=== PATIENT | male | born 1960 | race Caucasian/White ===

== ENCOUNTER 2017-01-17 01:44 | Emergency (ER) | payer MEDICARE, MEDICAID ==
[~2017-01-17] VITALS: Ht 175.3 cm; Wt 70.9 kg
[~2017-01-17 01:44] MED LIST: ALBU8.5H4 INHALATION; CYCL10TA9 PO; GABA600T2 PO; IMI100 PO; MECL-114 PO; ZOF8 PO; [UNRECOGNIZED DRUG - CODE] PO
[2017-01-17 01:49] VITALS: BP 149/84; PULSE 125; RESP 20; O2SAT 100
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
[2017-01-17] MEDS ORDERED: Albuterol-Ipratropium 3 mL Inhalation Solution NEB ONE (01:50)
[2017-01-17] MEDS ORDERED: Albuterol 2.5 mg/3 mL Inhalation Solution NEB ONE (01:50)
[2017-01-17] MEDS ORDERED: Dexamethasone 10 mg/mL Inj IVPUSH ONE (01:50)
[2017-01-17] MEDS ORDERED: 0.9% Sodium Chloride 1,000 ML IV ONE (01:50)
--- NOTE | 2017-01-17 02:09 | ABG ---
DateTimeAnalyzed 02:07:00 -_ pH ____7.343 - 7.350 7.450 pCO2 ___49.0__ -mmHg 35.0 45.0 pO2 ___78.9__ -mmHg 69.0 116 HCO3- ___25.9__ -mmol/L 22.0 26.0 ABE ____0.1__ -mmol/L -2.0 2.0 tHb ___13.2__ -g/dL O2Hb ___94.6__ -% COHb ____0.7__ -% MetHb ____0.8__ -% sO2 ___96.0__ -% 25.0 FIO2 ___25.0__ -% Drawn By MK - Date/Time Notified____ 02:09:00 -_ Liter_Flow ____1.0__ -L/min Oxygen Device 1 __CANNULA - B 753 -mmHg tO2 ___17.6__ -Vol% Roni test _Positive -
[2017-01-17 02:15] VITALS: PULSE 119; RESP 14; O2SAT 95
[2017-01-17 02:26] LABS: BASOPHILS % (AUTO) 0.3 % (0-3); EOSINOPHILS % (AUTO) 4.9 % (0-5); MONOCYTES % (AUTO) 4.8 % (4-12); Mean Corpuscular Volume 86.3 fL (81-100); NEUTROPHILS % (AUTO) 66.2 % (40-74); Platelet Count 216 bil/L (150-400)
[2017-01-17 02:53] LABS: TROPONIN T 0.016 ug/L (0.0-0.011)
[2017-01-17 03:50] VITALS: BP 121/83; PULSE 116; RESP 17; O2SAT 96
[2017-01-17 04:15] LABS: APPEARANCE,URINE CLEAR (CLEAR,HAZY); COLOR,URINE YELLOW (YELLOW); OCCULT BLOOD,URINE NEGATIVE (NEGATIVE); UROBILINOGEN,URINE NORMAL (NORMAL)
--- NOTE | 2017-01-17 09:00 | DRSVH ---
PROCEDURE: X-RAY CHEST ONE VIEW, PORTABLE ([id number]) INDICATIONS: resp distress TECHNIQUE: One view of the chest was acquired. COMPARISON: [facility], CR, XR CHEST 2VW, 03/05/2016, 22:30. FINDINGS: Surgical changes and devices: None. Lungs and pleura: No pleural effusions or pneumothorax. Lungs are clear. Lung volumes are increased with flattening of the hemidiaphragms suggesting COPD Mediastinum: Mediastinal contours appear normal. Heart size is normal. Bones and chest wall: No suspicious bony lesions. Overlying soft tissues appear unremarkable. IMPRESSION: Lung volumes are increased suggesting COPD, correlate with pulmonary functions test. Dictated by: Dante Gavin [facility] Interpreted: Aleshia Jain MD on 01/17/2017 at 8:59 Transcribed by: MICHAEL on 01/17/2017 at 8:59 Approved by: Aleshia aJin MD, PhD on 01/17/2017 at 17:03
[2017-01-17] MEDS ORDERED: RANI300T4 PO (09:43)
[2017-01-17] MEDS ORDERED: ALBU18HF INHALATION (09:43)
[2017-01-17] MEDS ORDERED: OXYC10TA8 PO (09:43)
[2017-01-17] MEDS ORDERED: SUMA100T2 PO (09:43)
[2017-01-17] MEDS ORDERED: MTH10T PO (09:43)
[2017-01-17] MEDS ORDERED: LISI10TA PO (10:28)
[2017-01-17] MEDS ORDERED: ALBU8.5H2 INHALATION (10:31)
== END 2017-01-17 03:45 | disposition left against medical advice (07) ==
LOC: SED 01:44
DX: R06.00 Dyspnea, unspecified (principal); R79.89 Other specified abnormal findings of blood chemistry; I10 Essential (primary) hypertension; I25.10 Atherosclerotic heart disease of native coronary artery without angina pectoris; E11.9 Type 2 diabetes mellitus without complications; Z87.891 Personal history of nicotine dependence
CPT/HCPCS: 36415; 71010; 80053; 81000; 83735; 83880; 84484; 85025; 93005; 94640; 94664; 96361; 96374; 99285; J1100; J7030; J7613; J7620

== ENCOUNTER 2017-01-17 05:10 | Inpatient (IN) | payer MEDICARE, MEDICAID ==
[~2017-01-17] VITALS: Ht 175.3 cm; Wt 68.7 kg
[2017-01-17] VITALS (8 sets, daily range): BP systolic 103–141; BP diastolic 49–84; PULSE 76–104; RESP 12–20; O2SAT 93–96
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
[2017-01-17] MEDS ORDERED: Ondansetron 2 mg/mL 2 mL Inj IVPUSH PRN ×2 (07:10→07:55)
[2017-01-17] MEDS ORDERED: Alum-Mag Hydrox-Simeth 30 mL Suspension PO PRN ×2 (07:10→07:55)
[2017-01-17] MEDS ORDERED: Heparin 5,000 Unit/mL Inj IVPUSH ONE (07:15)
[2017-01-17] MEDS ORDERED: Heparin 5,000 Unit/mL Inj IVPUSH PRN (07:15)
[2017-01-17] MEDS ORDERED: Heparin 25K Unit/500mL 0.45 NS 25,000 UNIT in IV Premix 1 EACH IV SCH (07:15)
[2017-01-17] MEDS ORDERED: 0.9% Sodium Chloride 1,000 ML IV SCH (07:52)
[2017-01-17] MEDS ORDERED: Polyethylene Glycol (PEG) 17 Gm Powder PO PRN (07:55)
[2017-01-17] MEDS ORDERED: Senna-Docusate 8.6-50 mg Tablet PO PRN (07:55)
[2017-01-17] MEDS ORDERED: MTH10T PO (09:43)
[2017-01-17] MEDS ORDERED: RANI300T4 PO (09:43)
[2017-01-17] MEDS ORDERED: ALBU18HF INHALATION (09:43)
[2017-01-17] MEDS ORDERED: OXYC10TA8 PO (09:43)
[2017-01-17] MEDS ORDERED: SUMA100T2 PO (09:43)
[2017-01-17] MEDS: Sodium Chloride LOK Flush 10 mL Syringe IVFLUSH SCH ×2 (09:58→15:31)
--- NOTE | 2017-01-17 10:07 | ABG ---
DateTimeAnalyzed 10:03:00 -_ pH ____7.413 - 7.350 7.450 pCO2 ___35.4__ -mmHg 35.0 45.0 pO2 110 -mmHg 69.0 116 HCO3- ___22.2__ -mmol/L 22.0 26.0 ABE ___-1.4__ -mmol/L -2.0 2.0 tHb ___13.2__ -g/dL O2Hb ___96.8__ -% COHb ____0.9__ -% MetHb ____0.9__ -% sO2 ___98.6__ -% 25.0 FIO2 ___28.0__ -% Drawn By NB - Date/Time Notified____ 10:06:00 -_ Spontaneous_RR ___18.0__ -b/min Liter_Flow ____2.0__ -L/min Oxygen Device 1 __CANNULA - Notified By nb - Notified Whom DR Fuimaono - B 751 -mmHg tO2 ___18.1__ -Vol% Roni test N/A -
[2017-01-17] MEDS ORDERED: LISI10TA PO (10:28)
[2017-01-17] MEDS ORDERED: ALBU8.5H2 INHALATION (10:31)
[2017-01-17] MEDS ORDERED: Acetaminophen IV 1,000 MG in IV Premix 1 EACH IV ONE (12:00)
[2017-01-17] MEDS ORDERED: Albuterol-Ipratropium 3 mL Inhalation Solution NEB SCH ×2 (12:30)
--- NOTE | 2017-01-17 13:31 | PCM.HPMED ---
Subjective Date of Service Jan 17, 2017 Primary Provider: Admitting Physician: Amilcar Ruffin MD Primary Care Physician: Teresita Alicia MD Attending Physician: Amilcar Ruffin MD Chief Complaint: Shortness of breath History of Present Illness: Bert Spears is a 55 year old man with past medical history significant for COPD, CAD with past history of DE, hypertension, and chronic back pain who presented to the [facility] ED due to complaint of shortness of breath since last night. The patient was bathing his cat when he became severely short of breath and attempted to use his nebulizer without relief. He states that when he normally uses it for shortness of breath his symptoms are relieved. The patient initially came in via EMS and was noted to have an O2 saturation of 73% on room air. He was evaluated and noted to a troponin of 0.015. The patient however refused admission as he had to return to care for his cat before he could be admitted. He left AMA and returned at 5 AM. Upon repeated draw of the troponin it was noted that it increase 10 fold. The patient denies any chest pain, nausea , vomiting, diaphoresis, cough, abdominal pain, jaw or neck pain, ripping back pain. He does note a migraine which is intermitted for him. He does note a chronic cough that is not more productive than normal. He has a history of an DE in 2008 which he states was only treated with NTG. His regular central sterile tech is Dr. Amador and she has recommended that he undergo a stress test but did not follow up. In the ED his vitals were T36.8 HR 104 RR 12 BP 141/84 and O2 sat 96% on room air. Cardiology was contacted and the ED physician was advised to start the patient on a heparin drip. Review of Systems: A comprehensive review of systems was conducted with the patient and found to be negative except as above in the History of Present Illness. Allergies Coded Allergies: No Known Allergies (Verified , 01/17/17) Home Medications Scheduled Gabapentin (Gabapentin) 600 Mg Tablet 600 MG PO BID Methadone HCl (Diskets) 40 Mg Tablet 40 MG PO TID Sumatriptan (Imitrex) 100 Mg Tablet 100 MG PO DAILY Scheduled PRN Albuterol HFA (Albuterol HFA) 8.5 Gm Hfa.aer.ad 2 PUFF INHALATION Q4H PRN PRN For Shortness of Breath Cyclobenzaprine (Cyclobenzaprine) 10 Mg Tablet 10 MG PO BID PRN PRN Spasm Meclizine (Bonine) 25 Mg Tab.chew 25 MG PO Q8H PRN PRN For Nausea Ondansetron (Zofran) 8 Mg Tablet 8 MG PO Q6H PRN PRN For Nausea PMH Chronic narcotic habituation and chronic pain syndrome secondary to chronic back pain. Seizure disorder. Diet-controlled diabetes mellitus. Chronic depression, anxiety, and panic disorder. Obstructive uropathy. Migraine headaches. DE Coronary artery disease Hypertension Surgical History Knee surgery. Per CT report, surgical fixation of the anterior wall of the right maxillary sinus. Family History Family history of heart disease. Social History Hx Alcohol Use: Yes (no alcohol since 7 years) Hx Substance Use: No (smokes POT occasional when under stress. ) Hx Tobacco Use: Yes Smoking Status: Former Smoker Additional Information Patient denies smoking at this time, but reports that he began smoking at [age] years old and has smoked for all but seven years since. He is currently one year since quitting this time. Poor social support, Local resident/ Exam Vital Signs Vital Sign - Last Date Time Temp Pulse Resp B/P Pulse Ox O2 Delivery O2 Flow Rate FiO2 01/17/17 08:34 96 01/17/17 08:25 36.8 18 130/77 94 Nasal Cannula 2.00 Exam General: No acute distress, well-developed, well-nourished, appropriately interactive. HEENT: Normocephalic, atraumatic. External ears without defect. Pupils equal, round, and reactive to light and accommodation. Anicteric sclerae, moist conjunctivae, and no lid lag. Oropharynx free of erythema and cobble stoning with moist mucosa. Neck: Supple with full range of motion. No jugular venous distension. No bruits. No lymphadenopathy or thyromegaly. Cardiovascular: Regular rate and rhythm with no murmurs, rubs, or gallops appreciated Pulmonary: Mild diffuse expiratory wheeze. Normal respiratory effort with no use of accessory muscles. Abdomen: Bowel tones present. Soft, nontender, nondistended. No hepatosplenomegaly or masses appreciated. Extremities: No clubbing, cyanosis, edema, or lymphadenopathy appreciated. Skin: Normal temperature, turgor, and texture; no rash, ulcers, or subcutaneous nodules appreciated. Neurological: Cranial nerves grossly intact. Normal muscle strength, tone, and bulk. Reflexes, coordination, and sensory function within normal limits. No known gait impairment. Psychiatric: A bit agitated and argumentative. Alert and oriented to person, place, and time. Lab and Diagnostics Labs Laboratory Tests 72 Hours Test 01/17/17 05:44 Magnesium Level 2.0mg/dL (1.6-2.6) Total Creatine Kinase 995U/L (21-232) Creatine Kinase MB 9.0ng/mL (0.0-10.4) Creatine Kinase MB % 0.9% (0.0-5.0) Troponin T 0.195ug/L (0.0-0.011) Thyroid Stimulating Hormone (TSH) 1.450uIU/mL (0.450-4.500) 01/17/17 0216 01/17/17 0216 Test 01/17/17 02:16 White Blood Count 11.5th/mm3 (3.8-10.1) Red Blood Count 4.52mil/mm3 (4.40-5.80) Hemoglobin 13.1g/dL (13.8-17.2) Hematocrit 39.0% (41.0-50.0) Mean Corpuscular Volume 86.3fL (81-100) Mean Corpuscular Hemoglobin 29.0pg (27.0-35.0) Mean Corpuscular Hemoglobin Concent 33.6% (32.0-37.0) Red Cell Distribution Width 13.2% (12.3-15.4) Platelet Count 216bil/L (150-400) Neutrophils (%) (Auto) 66.2% (40-74) Lymphocytes (%) (Auto) 23.5% (14-46) Monocytes (%) (Auto) 4.8% (4-12) Eosinophils (%) (Auto) 4.9% (0-5) Basophils (%) (Auto) 0.3% (0-3) Sodium Level 138mEq/L (134-144) Potassium Level 3.9mEq/L (3.5-5.2) Chloride Level 101mEq/L (97-108) Carbon Dioxide Level 20mmol/L (18-29) Blood Urea Nitrogen 9mg/dL (6-24) Creatinine 0.68mg/dL (0.76-1.27) Estimat Glomerular Filtration Rate 128mL/min (>59) Glucose Level 171mg/dL (60-99) Calcium Level 8.8mg/dL (8.5-10.1) Magnesium Level 2.0mg/dL (1.6-2.6) Total Bilirubin 0.2mg/dL (0.0-1.2) Aspartate Amino Transf (AST/SGOT) 27U/L (0-50) Alanine Aminotransferase (ALT/SGPT) 16U/L (0-44) Alkaline Phosphatase 119U/L (25-150) Troponin T 0.016ug/L (0.0-0.011) Pro-B-Type Natriuretic Peptide 34pg/mL (0-210) Total Protein 6.9g/dL (6.4-8.4) Albumin 4.1g/dL (3.4-5.0) Hold Aguirre Top Tube Received (Received) X-Rays, CTs and MRIs X-RAY CHEST ONE VIEW, PORTABLE IMPRESSION: Lung volumes are increased suggesting COPD, correlate with pulmonary functions test. Dictated by: Dante Gavin RRA Interpreted: Aleshia Jain MD on 01/17/2017 at 8:59 Assessment & Plan Bert Spears is a 55 year old man with past medical history significant for COPD, CAD with past history of DE, hypertension, and chronic back pain who presented to the [facility] ED due to complaint of shortness of breath since last night. NSTEMI, acute, present on admission -Patient with know CAD -ASA given in the ED, will continue 81 mg daily -Started on heparin drip, will continue -Telemetry -EKG PRN chest pain -NTG PRN chest pain -Continue to trend troponin -Patient started on metoprolol -Atorvastatin 80 mg HS -ECHO prior to cath -Bedrest -Continue lisinopril -Cardiology consulted, patient to go to the veterinary laboratory diagnostician tomorrow -NPO after midnight -Fasting lipid panel, A1C COPD, stable, present on admission -Not in exacerbation, etiology of SOB is cardiac -DuoNeb Q4 scheduled while awake -Albuterol nebulizer Q4 PRN shortness of breath Neuropathy, chronic, present on admission -Continue Gabapentin 600 Mg BID Chronic back pain, present on admission -Continue Methadone HCl 40 MG PO TID Migraines, chronic, present on admission -Hold Sumatriptan due to NSTEMI -IV Tylenol offered Diet-controlled diabetes mellitus -Most recent A1C was from 2006, will repeat -Constant carb diet Chronic depression, anxiety, and panic disorder -Ativan 0.5 mg Q4 PRN anxiety Hypertension -Management as above CODE STATUS: FULL CODE Patient is admitted under inpatient status with expected length of stay greater than 2 midnights due to severity of presenting symptoms, risk of adverse event, and complexity of treatment plan. VTE Prophylaxis Indicated: Meets Criteria for Anticoag Therapy Resuscitation Status: CPR: Attempt Resuscitation Attending Statement The patient was seen and examined together with Dr. Johnson on 01/17/2017 and I agree with the history, exam and plan as outlined in the note above. Yoly Johnson DO Jan 17, 2017 11:06 Jon Jara MD Jan 18, 2017 11:48
--- NOTE | 2017-01-17 14:22 | CONS ---
[address] [address] CONSULTATION REPORT PATIENT: KATHLEEN MARINO : 1960 MR#: [id number] ADMIT: 01/17/2017 JOB ID: [id number] DATE OF SERVICE: 01/17/2017 CARDIOLOGY CONSULTATION: CHIEF COMPLAINT: Chest pain and shortness of breath. HISTORY OF PRESENT ILLNESS: The patient is a 56-year-old man with hypertension and a history of pericarditis in 2012, with small pericardial effusion treated with ibuprofen. He comes in complaining of severe shortness of breath that started suddenly while he was giving his CAT a bath yesterday January 16, 2017. Apparently his cat likes to take baths and he had the cat in the bathtub. He was bathing his cat when suddenly he developed severe shortness of breath and chest pain. He presented to [facility] emergency department, and at that time, he had mildly elevated troponin T (0.016) in the setting of normal kidney function. His EKG was abnormal and demonstrated a subtle upsloping [address]-depression in leads V4, V5 and V6, as well as left axis deviation. The patient declined admission because he had to go home and take care of his cat, but then he came back to the hospital and this time his troponin T is sizably elevated at 0.195 and Cardiology is consulted to assist with management. He is currently chest pain free. He is tolerating heparin drip and aspirin as well as beta taye. He has many questions about the upcoming procedure and what to expect. PAST MEDICAL HISTORY: 1. BPH. 2. Depression. 3. Hypertension. 4. Seizure disorder. 5. Gastritis. 6. Migraine headaches. 7. Degenerative joint disease. 8. Chronic low back pain. 9. Diet-controlled diabetes. 10. Depression and panic disorder. FAMILY HISTORY: His father is alive but has had the patient believes multiple heart bypass operations. SH: The patient smokes. He has a 30 pack year history of smoking. He unfortunately did not graduate high school. He says he was in special education. He says his ability to read and write is limited. He participated in special education at school. He has a sister but they are not close. He lives alone in a mobile home with his cat. He was previously incarcerated in [place] ROS: chest pain, severe shortness of breath; no abdominal pain, no bruising or bleeding. Severe b/l foot pain; severely reduced visual actuity b/l closely monitored by Dr. De Jesus. Otherwise 10 point ROS is negative ALLERGIES: No known drug allergies. HOME MEDICATIONS: 1. Gabapentin 600 mg twice a day. 2. Methadone 40 mg 3 times a day. 3. Imitrex 100 mg daily. PHYSICAL EXAMINATION: A thin, elderly man, appears older than stated age. Temperature 36.6, blood pressure 121/75, pulse 83 beats per minute. Satting 94% on 2 liters nasal cannula. Eyes: No scleral icterus. Neck: Supple. No carotid bruits. Heart: Normal S1, S2. No murmurs. Lungs are clear. Anterior abdomen soft, positive bowel sounds. No hepatosplenomegaly. Extremities: Warm, well perfused. No clubbing, cyanosis or edema. Skin: No rashes or lesions. LABORATORIES: Reviewed. His TSH is normal. His troponin T is elevated at 0.195. His hematocrit is 39%, white count 11.5, creatinine 0.7. Transaminases are normal. IMAGING: So far included normal chest x-ray with a small cardiomediastinal silhouette and clear lungs. ASSESSMENT AND PLAN: This is a delightful 56-year-old man with non-STEMI. Pt declines LHC. He agrees to medical therapy. He has a history of leaving AMA, and has limited social support. PLAN: continue medical management of NSTEMI with heparin, aspirin, beta taye and LHC if he agrees. Thank you very much for the opportunity to participate in this patient's care. DENIS
[2017-01-17 14:25] LABS: TROPONIN T 0.122 ug/L (0.0-0.011)
[2017-01-17] MEDS ORDERED: Albuterol 1.25 mg/3 mL Inhalation Solution NEB PRN (17:35)
[2017-01-17] MEDS ORDERED: Pantoprazole 20 mg ER24 Tablet PO ONE (17:35)
--- NOTE | 2017-01-17 18:13 | NUR ---
AMA Pt left AMA despite education about risks, AMA paperwork signed, cardiology and hospitalist made aware. IV d/c intact, tele removed. Pt taken off unit via WC by DAYNA.
--- NOTE | 2017-01-17 18:45 | DRSVH ---
[facility] [address] [place] [address] Echocardiogram Report Name: KATHLEEN MARINO LStudy Date: 01/17/2017 Height: 69 in Hospital Exam Location: [facility] Weight: 151 lb Gender: Male BSA: 1.8 m2 : 1960 Age: 56 yrs BP: 121/75 m mHg Reason For Study: NSTEMI Ordering Physician: HOSPITALIST [facility] Performed By: Adriano Olmedo Referring Physician: THERESE BOYD Interpretation Summary The left ventricle is grossly normal size. The ejection fraction is estimated to be 55-60%. There is mid inferoseptal wall akinesis. There is mid anteroseptal wall akinesis. There is proximal mid posteriolateral wall akinesis. There is basal inferior wall hypokinesis. There is mid inferior wall akinesis (All the wall motions abnormalities are new. Rest of the segments have good contractility). The right ventricle is mildly dilated. The right ventricular systolic function is normal. No significant valvular pathology seen. Procedure: A two-dimensional transthoracic echocardiogram with color flow and Doppler was performed. The study quality was technically difficult. Comparison is made with the echocardiogram of 04/28/13. A contrast injection of Definity was performed to improve assessment of LV function. The patient was in normal sinus rhythm during the exam. Left Ventricle: There is normal left ventricular wall thickness. The left ventricle is grossly normal size. The ejection fraction is estimated to be 55 -60%. There is mid inferoseptal wall akinesis. There is mid anteroseptal wall akinesis. There is proximal mid posteriolateral wall akinesis. There is basal inferior wall hypokinesis. There is mid inferior wall akinesis. The E/E'is normal. Right Ventricle: The right ventricle is mildly dilated. The right ventricular systolic function is normal. Atria: The left atrium grossly appears normal in size. The right atrium grossly appears normal in size. The interatrial septum is intact with no evidence for an atrial septal defect. Mitral Valve: The mitral valve leaflets appear borderline thickened, but open well. There is mild mitral annular calcification. There is trace mitral regurgitation. Aortic Valve: The aortic valve is trileaflet. The aortic valve is not well visualized. There is no aortic valve stenosis. No aortic regurgitation is present. Tricuspid Valve: The tricuspid valve is normal. Pulmonary artery pressures cannot be estimated because of the lack of a measurable TR jet velocity. No tricuspid regurgitation. Pulmonic Valve: The pulmonic valve is not well visualized. Great Vessels: The aortic root is normal size. The ascending aorta could not be visualized. The pulmonary artery is normal size. The IVC is of normal diameter and collapses greater than 50% with a sniff. This suggests a low right atrial pressure of 3 mm Hg. Pericardium/ Pleura There is no pericardial effusion. There is no pleural effusion. MMode/2D Measurements & Calculations LVIDd LA A4 area LVOT diam: 2.0 cm LV spears. diameter/BSA : 4.3 cm Ao root diam: 3.8 cm (cm/m^2): 2.3 : 12.5 cm2 Ao Arch Diam (Prox Trans): 2.7 cm Doppler Measurements & Calculations Ao V2 max MV E max kwabena MV E/A: 1.1 MV dec time : 121.9 cm/sec : 61.2 cm/sec Med Peak E' Kwabena : 0.22 sec Ao max P.9 mmHgMV A max kwabena Ao mean PG : 55.6 cm/sec E/E' med: 6.5 Lat Peak E' Kwabena LVOT Max Kwabena : 116.9 cm/sec E/E' lat: 7.5 E/e' average: 7.0 SARAH(I,D): 3.0 cm sev ratio: 0.95 Ao V2 mean LV V1 max PG SARAH indexed to BSA : 86.8 cm/sec (cm^2/m^2): 1.7 Ao V2 VTI: 23.0 cm LV V1 VTI: 21.8 cm SARAH(V,D): 3.1 cm2 Reading Physician:IDA
[2017-01-17] MEDS ORDERED: oxyCODONE-Acetamin 5-325 mg Tablet PO SCH (21:00)
--- NOTE | 2017-01-18 11:53 | PCM.DC.MED ---
Discharge Summary Date of Service Jan 18, 2017 Dates of Hospitalization Date of Hospital Admission Jan 17, 2017 at 06:58 Date of Discharge: Jan 17, 2017 Providers: Admitting Physician: Amilcar Ruffin MD Primary Care Physician: Teresita Alicia MD Attending Physician: Amilcar Ruffin MD Diagnosis at Time of Discharge Diagnosis at Time of Discharge 1. NSTEMI 2. COPD Consultations 1. Cardiology Procedures XRay, CTs & MRIs X-RAY CHEST ONE VIEW, PORTABLE IMPRESSION: Lung volumes are increased suggesting COPD, correlate with pulmonary functions test. Dictated by: Dante Gavin [facility] Interpreted: Aleshia Jain MD on 01/17/2017 at 8:59 Brief History Bert Spears is a 55 year old man with past medical history significant for COPD, CAD with past history of [place], hypertension, and chronic back pain who presented to the [facility] ED due to complaint of shortness of breath since last night. The patient was bathing his cat when he became severely short of breath and attempted to use his nebulizer without relief. He states that when he normally uses it for shortness of breath his symptoms are relieved. The patient initially came in via EMS and was noted to have an O2 saturation of 73% on room air. He was evaluated and noted to a troponin of 0.015. The patient however refused admission as he had to return to care for his cat before he could be admitted. He left AMA and returned at 5 AM. Upon repeated draw of the troponin it was noted that it increase 10 fold. The patient denies any chest pain, nausea , vomiting, diaphoresis, cough, abdominal pain, jaw or neck pain, ripping back pain. He does note a migraine which is intermitted for him. He does note a chronic cough that is not more productive than normal. He has a history of an [place] in 2008 which he states was only treated with NTG. His regular sterile products processor is Dr. Amador and she has recommended that he undergo a stress test but did not follow up. In the ED his vitals were T36.8 HR 104 RR 12 BP 141/84 and O2 sat 96% on room air. Cardiology was contacted and the ED physician was advised to start the patient on a heparin drip. Hospital Course Bert Spears is a 55 year old man with past medical history significant for COPD, CAD with past history of [place], hypertension, and chronic back pain who presented to the [facility] ED due to complaint of shortness of breath since last night. Pt left hospital AMA. He was admitted for an NSTEMI and was scheduled for a heart catheterization, however he decided to leave hospital knowing the risk of . NSTEMI, acute, present on admission -Patient with know CAD -ASA given in the ED, will continue 81 mg daily -Started on heparin drip, will continue -Telemetry -EKG PRN chest pain -NTG PRN chest pain -Continue to trend troponin -Patient started on metoprolol -Atorvastatin 80 mg HS -ECHO prior to cath -Bedrest -Continue lisinopril -Cardiology consulted, patient to go to the [facility] [employer] tomorrow -NPO after midnight -Fasting lipid panel, A1C COPD, stable, present on admission -Not in exacerbation, etiology of SOB is cardiac -DuoNeb Q4 scheduled while awake -Albuterol nebulizer Q4 PRN shortness of breath Neuropathy, chronic, present on admission -Continue Gabapentin 600 Mg BID Chronic back pain, present on admission -Continue Methadone HCl 40 MG PO TID Migraines, chronic, present on admission -Hold Sumatriptan due to NSTEMI -IV Tylenol offered Diet-controlled diabetes mellitus -Most recent A1C was from 2006, will repeat -Constant carb diet Chronic depression, anxiety, and panic disorder -Ativan 0.5 mg Q4 PRN anxiety Hypertension -Management as above CODE STATUS: FULL CODE Patient is admitted under inpatient status with expected length of stay greater than 2 midnights due to severity of presenting symptoms, risk of adverse event, and complexity of treatment plan. Exam Vital Signs (Last) Date Time Temp Pulse Resp B/P Pulse Ox O2 Delivery O2 Flow Rate FiO2 01/17/17 16:27 36.8 76 18 103/61 93 Nasal Cannula 2.00 Test 01/17/17 05:44 01/17/17 13:25 Hemoglobin A1c 6.0% (4.8-5.6) Magnesium Level 2.0mg/dL (1.6-2.6) Thyroid Stimulating Hormone (TSH) 1.450uIU/mL (0.450-4.500) Activated Partial Thromboplast Time 44.1sec (22.8-33.0) Total Creatine Kinase 1460U/L (21-232) Creatine Kinase MB 11.6ng/mL (0.0-10.4) Creatine Kinase MB % 0.8% (0.0-5.0) Troponin T 0.122ug/L (0.0-0.011) Discharge Medications Discharge Medications Albuterol HFA (Proair HFA) 8.5 Gm Hfa.aer.ad 2 PUFFS INHALATION Q4H (Reported) Gabapentin (Gabapentin) 600 Mg Tablet 600 MG PO BID (Reported) Lisinopril (Lisinopril) 10 Mg Tablet 10 MG PO DAILY (Reported) Methadone (Methadone) 10 Mg Tab 20 MG PO TID (Reported) Ranitidine (Ranitidine) 300 Mg Tablet 300 MG PO BID (Reported) oxyCODONE (oxyCODONE) 10 Mg Tablet 10 MG PO DAILY (Reported) As needed Albuterol Sulfate (Ventolin HFA Inhaler) 200 Puff/18 Gm Inhaler 2 PUFFS INHALATION PRN AD (Reported) Cyclobenzaprine (Cyclobenzaprine) 10 Mg Tablet 10 MG PO BID PRN PRN Spasm ( Reported) Meclizine (Bonine) 25 Mg Tab.chew 25 MG PO Q8H PRN PRN For Nausea Prescribed by: MARY ZIMMERMAN DO Ondansetron (Zofran) 8 Mg Tablet 8 MG PO Q6H PRN PRN For Nausea Prescribed by: MARY ZIMMERMAN DO Sumatriptan Succinate (Sumatriptan Succinate) 100 Mg Tablet 100 MG PO PRN as needed (Reported) Followup Plan Disposition: Pt left hospital JUAN LUISA. Jon Jara MD Jan 18, 2017 11:53
== END 2017-01-17 18:18 | disposition left against medical advice (07) | DRG 282 ==
LOC: SED 05:10 → OBSVTOIN 06:58 → MPC 06:58
PROVIDERS: ADMIT Hospitalist; ATTEND Hospitalist
PROC: 4A033B1 Measurement of Arterial Pressure, Peripheral, Percutaneous Approach (ICD-10-PCS; principal; 2017-01-17)
DX: I21.4 Non-ST elevation (NSTEMI) myocardial infarction (principal); J44.9 Chronic obstructive pulmonary disease, unspecified; I25.10 Atherosclerotic heart disease of native coronary artery without angina pectoris; I10 Essential (primary) hypertension; G89.4 Chronic pain syndrome; G40.909 Epilepsy, unspecified, not intractable, without status epilepticus; E11.9 Type 2 diabetes mellitus without complications; F41.0 Panic disorder [episodic paroxysmal anxiety]; G62.9 Polyneuropathy, unspecified; G43.909 Migraine, unspecified, not intractable, without status migrainosus; I25.2 Old myocardial infarction; Z79.51 Long term (current) use of inhaled steroids; Z87.891 Personal history of nicotine dependence